=== PATIENT | female | born 2000 | race Hispanic/Latino ===

== ENCOUNTER 2022-09-05 17:55 | Emergency (ER) | payer OTHER, SELFPAY ==
[2022-09-05] MEDS ORDERED: FLUORESCEIN SODIUM 1 MG/WRAP ONE (19:56)
[2022-09-05] MEDS ORDERED: TETRACAINE HCL 0.5% 4ML OPTH ONE (19:56)
[2022-09-05] MEDS ORDERED: GENTAMICIN 0.3% OPTH DROP 5ML ONE (21:27)
--- NOTE | 2022-09-05 21:27 | EDPHYS ---
Physician Documentation [facility] Name: Radha Barron Age: 22 yrs Sex: Female : 2000 Arrival Date: 09/05/2022 Time: 17:56 Bed 11 Private MD: ED Physician Parrish Perez HPI: 09/05 18:30 This 22 yrs old Female presents to ER via Ambulatory with complaints of cp Chemical Exposure In Eye. 18:30 The patient sustained a splash, to the left eye, caused by liquid paint while at work. cp Onset: The symptoms/episode began/occurred today, 2 hour(s) ago. Associated signs and symptoms: Pertinent positives: foreign body sensation, redness. Patient does not utilize any form of vision correction. Historical: - Allergies: 18:31 No Known Allergies; ss - Home Meds: 18:31 Lexapro Oral [Active]; Wellbutrin Oral [Active]; ss - PMHx: 18:31 Anxiety; depressive disorder; ss - PSHx: 18:31 None; ss - Social history:: Smoking status: Reported history of juuling and/or vaping. ROS: 18:35 Constitutional: Negative for body aches, chills, fever, poor PO intake. cp 18:35 Eyes: Positive for foreign body sensation, pain, redness, of the left eye, Negative for cp discharge. 18:35 ENT: Negative for drainage from ear(s), ear pain, sore throat, difficulty swallowing, difficulty handling secretions. 18:35 Cardiovascular: Negative for chest pain, palpitations. 18:35 Respiratory: Negative for cough, shortness of breath, wheezing. 18:35 Abdomen/GI: Negative for abdominal pain, nausea, vomiting, and diarrhea. 18:35 Skin: Negative for cellulitis, rash. 18:35 Neuro: Negative for altered mental status, dizziness, headache, numbness, weakness. 18:35 All other systems are negative. Exam: 18:40 Constitutional: The patient appears in no acute distress, alert, awake, non-toxic, well cp developed, well nourished. 18:40 Head/Face: Normocephalic, atraumatic. cp 18:40 Eyes: Periorbital structures: appear normal, Pupils: equal, round, and reactive to light and accomodation, Extraocular movements: intact throughout, Conjunctiva: injected, in the left eye, Corneas: abrasion, is not appreciated, foreign body, is not appreciated, a fluorescein strip employed to appreciate the findings, Sclera: abrasion, multiple, Lids and lashes: appear normal, bilaterally, Examination of the other eye reveals no obvious gross abnormality. 18:40 ENT: External ear(s): are unremarkable, Nose: is normal, Mouth: Lips: moist, Oral mucosa: pink and intact, moist, Posterior pharynx: Airway: no evidence of obstruction, patent. 18:40 Neck: Lymph nodes: no appreciated lymphadenopathy. 18:40 Chest/axilla: Inspection: normal. 18:40 Cardiovascular: Rate: normal. 18:40 Respiratory: the patient does not display signs of respiratory distress, Respirations: normal. 18:40 Skin: no rash present. Vital Signs: 18:26 Pulse 72; Resp 16; Temp 97.3(TE); Pulse Ox 100% on R/A; Weight 66.22 kg; Height 5 ft. 2 ss in. (157.48 cm); Pain 0/10; 20:03 Pulse 80; Resp 18; Pulse Ox 100% ; mb9 21:45 BP 121 / 80; Pulse 74; Pulse Ox 100% on R/A; Pain 0/10; mb9 18:26 Body Mass Index 26.70 (66.22 kg, 157.48 cm) ss Visual Acuity: 21:36 Left Eye Visual acuity 20/20, Pupil size 4 mm, ; Right Eye Visual acuity 20/20, Pupil mb9 size 4 mm, ; Both Eyes Visual acuity 20/13; Without Lenses; MDM: 18:32 Patient medically screened. cp 21:26 Data reviewed: vital signs, nurses notes. cp 21:26 Differential diagnosis: Corneal abrasion of left eye. Foreign body in left eye. cp Chemical conjunctivitis in Infectious conjunctivitis in. Consideration of Admission/Observation Escalation of care including admission/observation considered. I considered the following discharge prescriptions or medication management in the emergency department Medications were administered in the Emergency Department. See MAR. Counseling: I had a detailed discussion with the patient and/or guardian regarding: the historical points, exam findings, and any diagnostic results supporting the discharge/admit diagnosis, the need for outpatient follow up, an opthalmologist, to return to the emergency department if symptoms worsen or persist or if there are any questions or concerns that arise at home. Response to treatment: the patient's symptoms have mildly improved after treatment, and as a result, I will discharge patient. 09/05 18: Order name: Eye Tray; Complete Time: 20:04 cp 09/05 18: Order name: Fluoresene Opth strip; Complete Time: 20:04 cp 09/05 18: Order name: Visual Acuity; Complete Time: 21:30 cp Administered Medications: 21:00 Drug: Tetracaine Drops 0.5 % 1 drops Route: Ophthalmic; Site: left eye; mb9 21:31 Drug: Gentamicin Drops 0.3 % 1 drops Route: Ophthalmic; Site: left eye; mb9 21:32 Follow up: Response: No adverse reaction mb9 Disposition Summary: 09/05/22 21:27 Discharge Ordered Location: Home cp Problem: new cp Symptoms: have improved cp Condition: Stable cp Diagnosis - Unspecified acute conjunctivitis, right eye cp Followup: cp - With: Kymberly Bentley MD - When: 1 - 2 days - Reason: Recheck today's complaints Discharge Instructions: - Discharge Summary Sheet cp - Chemical Conjunctivitis, Adult cp Forms: - Medication Reconciliation Form cp - Thank You Letter cp - Work release form bb - Antibiotic Education cp - Prescription Opioid Use cp Prescriptions: - Gentamicin 0.3 % Ophthalmic Drops - instill 1 drop by OPHTHALMIC route every 4 hours for 7 days; 1 bottle; Refills: cp 0, Product Selection Permitted Signatures: Angely Kam RN Denton Dickerson PA PA cp Breneman, Mary Beth RN RN mb9
--- NOTE | 2022-09-05 21:27 | ER ---
Nurse's Notes [facility] Name: Radha Barron Age: 22 yrs Sex: Female : 2000 Arrival Date: 09/05/2022 Time: 17:56 Bed 11 Private MD: Diagnosis: Unspecified acute conjunctivitis, right eye Presentation: 09/05 18:26 Chief complaint: Patient states: [place] splattered in L eye 2 hours ago while at work. ss Pt reports that the pain was a semi gloss paint. Coronavirus screen: Client denies travel out of the [place] in the last 14 days. Ebola Screen: Patient denies exposure to infectious person. Patient denies travel to an Ebola-affected area in the 21 days before illness onset. Initial Sepsis Screen: Does the patient meet any 2 criteria? No. Patient's initial sepsis screen is negative. Does the patient have a suspected source of infection? No. Patient's initial sepsis screen is negative. Risk Assessment: Do you want to hurt yourself or someone else? Patient reports no desire to harm self or others. Onset of symptoms. Onset of symptoms was September 05, 2022 at 16:20. 18:26 Method Of Arrival: Ambulatory ss 18:26 Acuity: LISET 4 ss Historical: - Allergies: 18:31 No Known Allergies; ss - Home Meds: 18:31 Lexapro Oral [Active]; Wellbutrin Oral [Active]; ss - PMHx: 18:31 Anxiety; depressive disorder; ss - PSHx: 18:31 None; ss - Social history:: Smoking status: Reported history of juuling and/or vaping. Screenin:03 [facility] ED Fall Risk Assessment (Adult) History of falling in the last 3 months, mb9 including since admission No falls in past 3 months (0 pts) Confusion or Disorientation No (0 pts) Intoxicated or Sedated No (0 pts) Impaired Gait No (0 pts) Mobility Assist Device Used No (0 pt) Altered Elimination No (0 pt) Score/Fall Risk Level 0 - 2 = Low Risk Oriented to surroundings, Maintained a safe environment, Educated pt \\T\\ family on fall prevention, incl call for assistance when getting out of bed. Abuse screen: Denies threats or abuse. Nutritional screening: No deficits noted. Tuberculosis screening: No symptoms or risk factors identified. Assessment: 19:50 Reassessment: pt brought back to ER room 11. mb9 20:01 Reassessment: Contacted poison control. They recommend to have pt do a 15 minute flush mb9 of the eye with water and reevaluate. Poison control states the expect 0 damage to the eye and perform a stain and go from there. 20:02 General: Appears in no apparent distress. comfortable, Behavior is calm, cooperative, mb9 appropriate for age. Pain: Denies pain. Neuro: Level of Consciousness is awake, alert, obeys commands. Respiratory: Airway is patent Respiratory effort is even, unlabored, Respiratory pattern is regular, symmetrical. GI: No signs and/or symptoms were reported involving the gastrointestinal system. : No signs and/or symptoms were reported regarding the genitourinary system. EENT: Eyes left eye is reddened and irritated. Pt states "it feels like when I put fake eyelashes on and when glue gets in my eye. Its just a little itchy" . Derm: Skin is pink, warm \\T\\ dry. 20:05 Reassessment: pt currently flushing left eye with water. mb9 21:31 Reassessment: No changes from previously documented assessment. Patient and/or family mb9 updated on plan of care and expected duration. Pain level reassessed. Patient is alert, oriented x 3, equal unlabored respirations, skin warm/dry/pink. Patient denies pain at this time. Patient states feeling better. Patient states symptoms have improved. Vital Signs: 18:26 Pulse 72; Resp 16; Temp 97.3(TE); Pulse Ox 100% on R/A; Weight 66.22 kg; Height 5 ft. 2 ss in. (157.48 cm); Pain 0/10; 20:03 Pulse 80; Resp 18; Pulse Ox 100% ; mb9 21:45 BP 121 / 80; Pulse 74; Pulse Ox 100% on R/A; Pain 0/10; mb9 18:26 Body Mass Index 26.70 (66.22 kg, 157.48 cm) ss Visual Acuity: 21:36 Left Eye Visual acuity 20/20, Pupil size 4 mm, ; Right Eye Visual acuity 20/20, Pupil mb9 size 4 mm, ; Both Eyes Visual acuity 20/13; Without Lenses; ED Course: 17:56 Patient arrived in ED. rg4 17:58 Denton Coley PA is PHCP. cp 17:58 Parrish Perez DO is Attending Physician. cp 18:28 Triage completed. ss 18:31 Arm band placed on right wrist. ss 19:46 Neeru Ascencio, RN is Primary Nurse. mb9 20:26 No provider procedures requiring assistance completed. mb9 21:26 Kymberly Bentley MD is Referral Physician. cp 21:45 Patient did not have IV access during this emergency room visit. mb9 Administered Medications: 21:00 Drug: Tetracaine Drops 0.5 % 1 drops Route: Ophthalmic; Site: left eye; mb9 21:31 Drug: Gentamicin Drops 0.3 % 1 drops Route: Ophthalmic; Site: left eye; mb9 21:32 Follow up: Response: No adverse reaction mb9 Outcome: 21:27 Discharge ordered by MD. cp 21:45 Discharged to home ambulatory. mb9 21:45 Condition: stable 21:45 Discharge instructions given to patient, Instructed on discharge instructions, follow up and referral plans. Demonstrated understanding of instructions, follow-up care, medications, Prescriptions given X 1. 21:46 Patient left the ED. mb9 Signatures: Angely Kam RN RN Denton Coley PA PA Vaishali Strong rg4 Neeru Ascencio, RN RN mb9 Corrections: (The following items were deleted from the chart) 21:45 21:31 Reassessment: pt eye exam complete. 20/20 in left and right eye mb9 mb9
[2022-09-06 00:27] VITALS: TEMP 97.3; O2SAT 100
[2022-09-06 00:36] VITALS: BP 121/80
== END 2022-09-05 21:46 | disposition home or self-care (01) ==
LOC: ER 17:55
DX: H10.31 Unspecified acute conjunctivitis, right eye (principal)
CPT/HCPCS: 99283